=== PATIENT | female | born 2000 | race Caucasian/White ===

== ENCOUNTER → 2018-11-07 | Outpatient (CLI) | payer OTHER | LOC: HYPER 06:50 | DX: T81.89XA Other complications of procedures, not elsewhere classified, initial encounter (principal); L05.01 Pilonidal cyst with abscess; L84 Corns and callosities; Y92.89 Other specified places as the place of occurrence of the external cause; Y83.8 Other surgical procedures as the cause of abnormal reaction of the patient, or of later complication, without mention of misadventure at the time of the procedure ==

== ENCOUNTER → 2018-11-21 | Outpatient (CLI) | payer OTHER | LOC: EDBD → HYPER | DX: T81.89XD Other complications of procedures, not elsewhere classified, subsequent encounter (principal); L05.01 Pilonidal cyst with abscess; Y83.8 Other surgical procedures as the cause of abnormal reaction of the patient, or of later complication, without mention of misadventure at the time of the procedure ==